=== PATIENT | male | born 1935 | race Caucasian/White ===

== ENCOUNTER 2016-12-10 18:18 | Inpatient (IN) | payer MEDICARE, OTHER ==
[~2016-12-10] VITALS: Ht 177.8 cm; Wt 71.7 kg
--- NOTE | 2016-12-11 16:28 | NUR ---
MET WITH PT. AND DAUGHTER THIS DATE TO COMPLETE ASSESSMENT. PT. IS PLANNING TO RETURN HOME WITH SPOUSE. HE WILL NEED A ROLLING WALKER AND HOME O2. PT. HAS A WALK IN SHOWER AND SHOWER SEAT. PT. ADVISED THAT HE HAD 22 RADIATION TREATMENTS AND 2 CHEMO TREATMENTS AT [facility] IN [place]. HE IS SCHEDULED TO TAKE 2 MORE CHEMO TREATMENTS ONCE IS WELL.
[2016-12-14 10:12] LABS: BILIRUBIN NEGATIVE (NEGATIVE); BLOOD NEGATIVE Ery/uL (NEGATIVE); CLARITY CLEAR (CLEAR); COLOR YELLOW (YELLOW); GLUCOSE (U) TRACE mg/dL (NORMAL); KETONE (U) NEGATIVE (NEGATIVE); LEUKOCYTES NEGATIVE Leu/uL (NEGATIVE); NITRITE NEGATIVE (NEGATIVE); PROTEIN NEGATIVE (NEGATIVE); SPECIFIC GRAVITY 1.015 (1.001-1.030); UROBILINOGEN 0.2 mg/dL (0.2-1.0)
--- NOTE | 2016-12-14 10:25 | NUR ---
SPOT CHECK ON ROOM AIR 88% O2 2L PER NC PLACED BACK ON PATIENT
--- NOTE | 2016-12-17 11:56 | NUR ---
PT. HAS REQUESTED TO D/C HOME ON 12/18/16. PER HIS NURSE, CARY, PT. IS VOIDING WITHOUT DIFFICULTY. PER DISHA WITH PHYSICAL THERAPY, PT. MAY DISCHARGE WHEN MEDICALLY STABLE. ADVISED DAPHNE VAZQUEZ; OF PT. REQUEST TO DISCHARGE HOME.
--- NOTE | 2016-12-18 10:43 | NUR ---
PT D/C HOME THIS DATE WITH SPOUSE. PT. REQUESTED [employer] FOR PT/OT AND NURSING ASSESSMENT. [facility] TO DELIVER A ROLLING WALKER, HOME O2 AND TRAVEL TANK. D/C NOTICE AND QUESTIONNAIRE GIVEN.
--- NOTE | 2016-12-18 11:13 | NUR ---
80 YEAR OLD DC HOME WITH FAMILY, A/O X3, WENT OVER DC ORDERS HIM AND DAUGHTER R/V UNDERSTANDING
== END 2016-12-18 11:14 | disposition home health service (06) | DRG 947 ==
LOC: FSNU 18:18
PROVIDERS: Internal Medicine; ADMIT Internal Medicine
DX: R53.81 Other malaise (principal); J18.9 Pneumonia, unspecified organism; D61.810 Antineoplastic chemotherapy induced pancytopenia; C34.91 Malignant neoplasm of unspecified part of right bronchus or lung; E11.9 Type 2 diabetes mellitus without complications; J44.0 Chronic obstructive pulmonary disease with (acute) lower respiratory infection; J44.1 Chronic obstructive pulmonary disease with (acute) exacerbation; F41.9 Anxiety disorder, unspecified; N40.1 Benign prostatic hyperplasia with lower urinary tract symptoms; R39.198 Other difficulties with micturition
CPT/HCPCS: 81001; 82962; 87070; 87077; 87088; 87186; 87205; 97110; 97116; 97163; 97167; 97530; 97530-GP; 97535